=== PATIENT | female | born 1945 | race Caucasian/White ===

== ENCOUNTER → 2022-08-05 | Outpatient (REF) | payer MEDICARE ==
[2022-08-05 19:11] LABS: TOTAL PROTEIN,RANDOM URINE 23.6 MG/DL (0.0-14.0)
[2022-08-05 19:16] LABS: CREATININE,RANDOM URINE 112.2 MG/DL
== END ==
LOC: M LAB REF 16:38
PROVIDERS: ATTEND Internal Medicine Nephrology
DX: R31.21 Asymptomatic microscopic hematuria (principal); N18.32 Chronic kidney disease, stage 3b